=== PATIENT | male | born 1995 | race Caucasian/White ===

== ENCOUNTER 2016-12-18 01:06 | Emergency (ER) | payer SELFPAY ==
--- NOTE | 2016-12-18 01:19 | Emergency Department Record ---
History of Present Illness - General Chief Complaint: Abdominal Pain Stated Complaint: ABD PAIN Time Seen by Provider: 12/18/16 01:18 Source: Patient Mode of Arrival: Ambulatory Limitations: No limitations - History of Present Illness Initial Comments: The patient is here due to an hour and a half of lower abdominal pain. The pain is crampy in nature and he did have one episode of nausea and vomiting. There is no reported diarrhea, fever, chills or dysuria. The patient was at work when the pain started and decided to come over to the ER. Presently he is feeling better and has no nausea and very little pain. He has no hx of any abdominal surgeries. MD Complaint: Abdominal pain Onset/Timin -: Hour(s) Location: LLQ Radiation: Suprapubic Severity: Moderate Quality: Aching Consistency: Constant Improves With: Nothing Associated Symptoms: Vomiting - Related Data Home Medications Medication Instructions Recorded Confirmed Last Taken No Home Med [NO HOME MEDS] 12/18/16 12/18/16 Unknown Allergies Allergy/AdvReac Type Severity Reaction Status Date / Time No Known Drug Allergies Allergy Verified 12/18/16 01:14 Travel Screening - Travel/Exposure Within Last 30 Days Have you traveled within the last 30 days?: No - Travel/Exposure Within Last Year Have you traveled outside the [place] in the last year?: No - Additonal Travel Details Have you been exposed to anyone with a communicable illness?: No - Travel Symptoms Symptom Screening: None Review of Systems Constitutional: Denies: Chills, Malaise Eyes: Denies: Eye discharge ENT: Denies: Congestion Respiratory: Denies: Cough, Dyspnea Past Medical History - SOCIAL HISTORY Smoking Status: Former smoker Alcohol Use: Rare Drug Use: None - RESPIRATORY Hx Respiratory Disorders: No - CARDIOVASCULAR Hx Cardio Disorders: No - NEURO Hx Neuro Disorders: No - GI Hx GI Disorders: No - Hx Genitourinary Disorders: No - ENDOCRINE Hx Endocrine Disorders: No - MUSCULOSKELETAL Hx Musculoskeletal Disorders: No - PSYCH Hx Psych Problems: No - HEMATOLOGY/ONCOLOGY Hx Hematology/Oncology Disorders: No Family Medical History Any Significant Family History?: Yes Family Hx Comment (NOT TO BE USED IN PLACE OF ITEMS BELOW): siblings Muscular Dystrophy Physical Exam - General General Appearance: Alert, Oriented x3, Cooperative, No acute distress - Head Head exam: Atraumatic, Normocephalic, Normal inspection - Eye Eye exam: Normal appearance, PERRL - ENT Throat exam: Normal inspection. negative: Tonsillar erythema, Tonsillar exudate - Neck Neck exam: Normal inspection, Full ROM. negative: Tenderness - Respiratory Respiratory exam: Normal lung sounds bilaterally. negative: Respiratory distress - Cardiovascular Cardiovascular Exam: Regular rate, Normal rhythm, Normal heart sounds - GI/Abdominal GI/Abdominal exam: Soft, Tenderness (There is mild lower abdominal tenderness L > R.). negative: Guarding, Rebound, Rigid - Extremities Extremities exam: Normal inspection, Full ROM, Normal capillary refill. negative: Tenderness Course Vital Signs 12/18/16 01:07 Temperature 97.7 F Pulse Rate 68 Respiratory 18 Rate Blood Pressure 113/69 Pulse Ox 99 - Reevaluation(s) Reevaluation #1: The patient is doing much better at this time. He states the pain is over 50% improved and he is up walking with no pain or discomfort. I rechecked his abdomen and it is very soft with no significant tenderness or any guarding or rebound. I did discuss the options regarding how to evaluate his pain further but the patient states he would like to go home. He is to return to the ER in 8 hours for any persistent or any worsening pain and we may order a CT at that time. Due to the fact the patient has only had the pain for 2 hours and it is much improved at this time with a nontender abdomen and normal lab work I strongly doubt any serious surgical pathology. 12/18/16 02:08 Medical Decision Making - Data Complexity MDM Data: Labs Ordered and/or Reviewed - Lab Data Result diagrams: 12/18/16 01:38 12/18/16 01:38 Disposition Disposition: Discharge Clinical Impression: Abdominal pain in male Disposition: Home, Self-Care Condition: (1) Good Instructions: Constipation (ED), Abdominal Pain (ED) Additional Instructions: Please drink plenty of fluids and use Tylenol for pain. Please use an OTC laxative to get your bowels moving. Please return to the ER in 8 hours for any persistent or any increased pain, or for any vomiting or fever. Follow up with your family doctor this week for further evaluation. Forms: Patient Portal Access Time of Disposition: 02:07
[2016-12-18] MEDS ORDERED: MAGNESIUM HYDROXIDE/AL HYDROX 10.0001 ML, LIDOCAINE VISC 2% 200 MG, PHENOBARB/HYOSCY/AT... PO ONE ×3 (01:26)
[2016-12-18 01:44] LABS: BASO % 0.2 % (0-6); EOS % 1.2 % (0-6); GRAN % 76.4 % (47-80); HEMATOCRIT 42.2 % (42.0-52.0); HEMOGLOBIN 14.8 gm/dl (14.0-18.0); LYMPH % 13.9 % (16-45); MEAN CELL VOLUME 83.6 fl (81-97); MEAN CORPUSCULAR HEMOGLOBIN 29.3 pg (27-33); MEAN CORPUSCULAR HGB CONC 35.1 g/dl (32-36); MEAN PLATELET VOLUME 10.4 fl (7.4-10.4); MONO % 8.3 % (0-9); PLATELET COUNT 273 K/uL (130-400); RED BLOOD COUNT 5.05 M/uL (4.40-5.70); RED CELL DISTRIBUTION WIDTH 13.2 % (11.5-14.5); WHITE BLOOD COUNT W/O DIFF 9.9 K/uL (4.2-12.2)
[2016-12-18 01:44] LABS: URINE APPEARANCE CLEAR; URINE BILIRUBIN NEGATIVE (NEGATIVE); URINE BLOOD NEGATIVE (NEGATIVE); URINE COLOR YELLOW; URINE GLUCOSE (UA) NEGATIVE (NEGATIVE); URINE KETONE NEGATIVE (NEGATIVE); URINE LEUKOCYTE ESTERASE NEGATIVE (NEGATIVE); URINE NITRITE NEGATIVE (NEGATIVE); URINE PROTEIN NEGATIVE (NEGATIVE); URINE UROBILINOGEN 0.2 E.U./dL (0.20 - 1.00)
[2016-12-18 01:54] LABS: ALB/GLOB RATIO 1.6 (1.1-1.8); ALBUMIN 4.9 gm/dL (3.5-5.0); ALKALINE PHOSPHATASE 63 U/L (38-126); ALT/SGPT 32 U/L (21-72); ANION GAP 16.1 (7-16); AST/SGOT 22 U/L (17-59); BILIRUBIN,TOTAL 0.54 mg/dL (0.2-1.3); BLOOD UREA NITROGEN 17 mg/dL (9-20); CARBON DIOXIDE 25.9 mmol/L (22-30); CREATININE 0.7 mg/dL (0.66-1.25); EST GLOMERULAR FILTRATION RATE > 60 ml/min; GLUCOSE,RANDOM 78 mg/dL (70-110); LIPASE 63 U/L (23-300); TOTAL PROTEIN 7.9 gm/dL (6.3-8.2)
== END 2016-12-18 02:15 | disposition home or self-care (01) ==
LOC: ER 01:06
DX: R10.32 Left lower quadrant pain (principal); R11.2 Nausea with vomiting, unspecified
CPT/HCPCS: 99283 ×2; 83690; 85025; 80053; 81003; J3490

== ENCOUNTER 2017-12-11 06:04 | Emergency (ER) | payer MEDICAID ==
--- NOTE | 2017-12-11 06:27 | Emergency Department Record ---
History of Present Illness - General Chief Complaint: Fall Injury Stated Complaint: FALL Time Seen by Provider: 12/11/17 06:21 Source: Patient Mode of Arrival: Ambulatory Limitations: No limitations - History of Present Illness Initial Comments: 22 yo male presents to ED for evaluation of right shoulder pain following a fall this morning. Patient denies other injury resulting from the fall, denies head or neck pain symptoms. Patient denies numbness, tingling, or extremity weakness symptoms. Patient denies health problems other than depression. MD Complaint: Fall Onset/Timin -: Hour(s) Fall From: Down stairs (#) When Fall Occurred: 1 hour FUEL CE[employer] Fall Witnessed: No Place Fall Occurred: Home Loss of Consciousness: None Prolonged Down Time?: No Symptoms Prior to Fall: None Location: Back Severity: Moderate Severity scale (1-10): 4 Context: Tripped/slipped Associated Symptoms: Denies - [place] Coma Scale Eye Response: (4) Open spontaneously Motor Response: (6) Obeys commands Verbal Response: (5) Oriented [place] Total: 15 - Related Data Allergies Allergy/AdvReac Type Severity Reaction Status Date / Time No Known Drug Allergies Allergy Unverified 11/21/17 16:08 Travel Screening - Travel/Exposure Within Last 30 Days Have you traveled within the last 30 days?: No - Travel/Exposure Within Last Year Have you traveled outside the [place] in the last year?: No - Additonal Travel Details Have you been exposed to anyone with a communicable illness?: No - Travel Symptoms Symptom Screening: None Review of Systems Constitutional: Denies: Chills, Fever, Malaise, Night sweats Eyes: Denies: Eye discharge, Eye pain ENT: Denies: Congestion, Ear pain, Epistaxis Respiratory: Denies: Cough, Dyspnea, Hemoptysis Cardiovascular: Denies: Chest pain, Dyspnea on exertion Endocrine: Denies: Fatigue, Heat or cold intolerance Gastrointestinal: Denies: Abdominal pain, Nausea, Vomiting Genitourinary: Denies: Incontinence, Retention Musculoskeletal: Reports: Arthralgia. Denies: Back pain, Gout, Joint swelling, Myalgia Skin: Denies: Bruising, Change in color Neurological: Denies: Abnormal gait, Confusion, Headache Psychiatric: Denies: Anxiety Hematological/Lymphatic: Denies: Anemia, Blood Clots Past Medical History - SOCIAL HISTORY Smoking Status: Former smoker Alcohol Use: Occasional Drug Use: None - RESPIRATORY Hx Respiratory Disorders: No - CARDIOVASCULAR Hx Cardio Disorders: No - NEURO Hx Neuro Disorders: No - GI Hx GI Disorders: No Hx Crohn's Disease: Yes - Hx Genitourinary Disorders: No - ENDOCRINE Hx Endocrine Disorders: No - MUSCULOSKELETAL Hx Musculoskeletal Disorders: No - PSYCH Hx Psych Problems: Yes Hx Depression: Yes - HEMATOLOGY/ONCOLOGY Hx Hematology/Oncology Disorders: No Family Medical History Any Significant Family History?: Yes Family Hx Comment (NOT TO BE USED IN PLACE OF ITEMS BELOW): siblings Muscular Dystrophy Physical Exam - General General Appearance: Alert, Oriented x3, Cooperative, Moderate distress Limitations: No limitations - Head Head exam: Atraumatic, Normocephalic, Normal inspection Head exam detail: negative: Abrasion, Contusion, Villanueva's sign, General tenderness, Hematoma, Laceration - Eye Eye exam: Normal appearance. negative: Conjunctival injection, Periorbital swelling, Periorbital tenderness, Scleral icterus - ENT Ear exam: negative: Auricular hematoma, Auricular trauma Nasal Exam: negative: Active bleeding, Discharge, Dried blood, Foreign body Mouth exam: negative: Drooling, Laceration, Muffled voice, Tongue elevation - Neck Neck exam: Normal inspection. negative: Meningismus, Tenderness - Respiratory Respiratory exam: Normal lung sounds bilaterally. negative: Respiratory distress, Rhonchi, Stridor, Wheezes - Cardiovascular Cardiovascular Exam: Regular rate, Normal rhythm, Normal heart sounds - GI/Abdominal GI/Abdominal exam: Soft. negative: Rebound, Rigid, Tenderness - Rectal Rectal exam: Deferred - exam: Deferred - Extremities Extremities exam: Tenderness (TTP to the anterior right shoulder, FROM with pain on examination, strong distal radial pulse). negative: Calf tenderness, Pedal edema - Back Back exam: Denies: CVA tenderness (R), CVA tenderness (L) - Neurological Neurological exam: Alert, Normal gait, Oriented X3 - Psychiatric Psychiatric exam: Normal affect, Normal mood - Skin Skin exam: Normal color. negative: Abrasion Type of lesion: negative: abrasion Course Vital Signs 12/11/17 06:09 Temperature 98 F Pulse Rate [ 69 Pulse Ox Probe] Respiratory 20 Rate Blood Pressure 121/87 [Left Arm] Pulse Ox 99 - Reevaluation(s) Reevaluation #1: 12/11/17 06:41 Right shoulder: No acute fracture Patient was updated on his radiology results, symptoms appear c/w contusion of the shoulder. Patient appears stable for discharge at this time with symptomatic care as discussed. Disposition Disposition: Discharge Clinical Impression: Shoulder contusion Qualifiers: Encounter type: initial encounter Laterality: right Qualified Code(s): S40.011A - Contusion of right shoulder, initial encounter Disposition: Home, Self-Care Condition: (2) Stable Instructions: Shoulder Pain (ED) Additional Instructions: Return to ED if your symptoms worsen or if you have any concerns. Ibuprofen as directed. Follow-up with your family doctor in 3-5 days as directed. Forms: Patient Portal Access Time of Disposition: 06:42 Quality - Quality Measures Quality Measures: N/A - Blood Pressure Screening Does Patient Have Any of the Following: No Blood Pressure Classification: Pre-Hypertensive BP Reading Systolic Measurement: 121 Diastolic Measurement: 87 Screening for High Blood Pressure: < Pre-Hypertensive BP, F/U Documented > [ [id number]] Pre-Hypertensive Follow-up Interventions: Referral to alternative/primary care provider.
--- NOTE | 2017-12-11 21:45 | RADIOLOGY REPORT ---
EXAM: SHOULDER, RIGHT HISTORY: PATIENT FELL DOWN FIVE STEPS AN HOUR AGO LANDING ON RIGHT SHOULDER WITH PAIN RIGHT SHOULDER. TECHNIQUE: Three views right shoulder. COMPARISON: Right shoulder series 09/05/15. ENCOUNTER: Initial. FINDINGS: The right shoulder appears intact with no definite fracture or dislocation identified. IMPRESSION: RIGHT SHOULDER APPEARS NEGATIVE. JOB NUMBER: [id number] MTDD
== END 2017-12-11 06:47 | disposition home or self-care (01) ==
LOC: ER 06:04
DX: S40.011A Contusion of right shoulder, initial encounter (principal); W10.9XXA Fall (on) (from) unspecified stairs and steps, initial encounter; Y92.009 Unspecified place in unspecified non-institutional (private) residence as the place of occurrence of the external cause
CPT/HCPCS: 99283